=== PATIENT | female | born 1995 | race African-American/Black ===

== ENCOUNTER 2017-02-27 16:22 | Emergency (ER) | payer MEDICAID ==
[~2017-02-27] VITALS: Ht 162.6 cm; Wt 50.0 kg
[2017-02-27] MEDS ORDERED: KETOROLAC 60MG/2ML VIAL IM ONE (22:00)
[2017-02-27 22:15] VITALS: BP 121/78
== END 2017-02-27 23:34 | disposition home or self-care (01) ==
LOC: ER 16:37
DX: R51 Headache (principal); W22.8XXA Striking against or struck by other objects, initial encounter; Y93.89 Activity, other specified; Y92.89 Other specified places as the place of occurrence of the external cause; Y99.8 Other external cause status
CPT/HCPCS: 81025; 96372; 99283; J1885